=== PATIENT | female | born 1980 | race Hispanic/Latino ===

== ENCOUNTER → 2021-03-25 | Outpatient (CLI) | payer OTHER ==
[~2021-03-25] MED LIST: ALBUTEROL SULFATE 0.083% 2.5 MG/3 ML INH IH ONE
== END | disposition home or self-care (01) ==
LOC: RESP 13:00
PROVIDERS: ATTEND Orthopaedic Surgery
DX: R06.00 Dyspnea, unspecified (principal); M13.872 Other specified arthritis, left ankle and foot; R06.02 Shortness of breath
CPT/HCPCS: 71046; 72100; 73610; 94060